=== PATIENT | female | born 1990 | race Caucasian/White ===

== ENCOUNTER 2024-12-16 09:30 | Outpatient (RCR) | payer OTHER, SELFPAY ==
[2024-12-15 11:08] VITALS: BMI 32.4
--- NOTE | 2024-12-15 13:59 | PC.ADMIT ---
Patient is a 34 year old female who was referred to PHP by her psychiatrist d/t increased depression sxs with passive SI (no plan or intent) and intermittent anxiety. Patient reports stresses include work and financial stresses. She also reports she has a 4 month old and a 3.5 year old who is on the spectrum which can be challenging. Patient reports her gave to their children as patient reports that she has too many medical issues that would make it challenging for her to have children. Patient also identified that she has issues with her family of origin. Patient is alert and oriented x4. She is calm and cooperative. She presented with depressed mood and anxious affect. She currently denied SI or HI. Patient stated, I have had passive ideation of not wanting to be alive and I don't have any plans. I lost my brother in law to suicide in 2019 . Patient reports this was traumatic for her family and continues to be traumatic. Patient reports she is currently on a RADHA from work. Patient is taking a RADHA through her PCP. Medications updated with patient and patient's pharmacy. Patient reports that she takes medications as prescribed. Patient denied any use of substances.
== END 2024-12-16 23:59 | disposition home or self-care (01) ==
LOC: HO.PHPA 09:30
PROVIDERS: Visit Provider Psychiatry & Neurology Psychiatry
DX: F33.2 Major depressive disorder, recurrent severe without psychotic features (principal); F90.9 Attention-deficit hyperactivity disorder, unspecified type
CPT/HCPCS: 90791; 90853